=== PATIENT | male | born 1985 | race Caucasian/White ===

== ENCOUNTER → 2020-02-10 11:03 | Outpatient (BNVA) | payer OTHER, SELFPAY | PROVIDERS: Family Provider Family Medicine; PCP Family Medicine; Visit Provider Family Medicine | DX: J30.2 Other seasonal allergic rhinitis (principal); R79.89 Other specified abnormal findings of blood chemistry; Z13.6 Encounter for screening for cardiovascular disorders | CPT/HCPCS: 80053; 80061; 84443 ==

== ENCOUNTER → 2020-02-11 17:07 | Outpatient (BNVA) | payer OTHER, SELFPAY | PROVIDERS: Family Provider Family Medicine; PCP Family Medicine; Visit Provider Family Medicine | DX: R79.89 Other specified abnormal findings of blood chemistry (principal) | CPT/HCPCS: 84436; 84480 ==

== ENCOUNTER → 2021-03-17 13:45 | Outpatient (BNVA) | payer OTHER, SELFPAY | PROVIDERS: Family Provider Family Medicine; PCP Family Medicine; Visit Provider Family Medicine | DX: R79.89 Other specified abnormal findings of blood chemistry (principal); Z13.6 Encounter for screening for cardiovascular disorders | CPT/HCPCS: 80053; 84439; 84443; 85025 ==

== ENCOUNTER → 2021-03-24 12:11 | Outpatient (BNVA) | payer OTHER, SELFPAY | PROVIDERS: Family Provider Family Medicine; PCP Family Medicine; Visit Provider Family Medicine | DX: D64.9 Anemia, unspecified (principal); Z13.6 Encounter for screening for cardiovascular disorders | CPT/HCPCS: 80061; 82607; 82746 ==

== ENCOUNTER 2022-02-18 09:38 | Emergency (ER) | payer OTHER, SELFPAY ==
--- NOTE | 2022-02-18 09:42 | XRR_ITS ---
PROCEDURE INFORMATION: Exam: XR Left Foot Exam date and time: 02/18/2022 9:52 AM Age: 36 years old Clinical indication: Patient HX: Left lateral foot pain, bug bite TECHNIQUE: Imaging protocol: Radiologic exam of the Left foot. Views: 3 or more views. COMPARISON: No relevant prior studies available. FINDINGS: Bones/joints: Normal. Soft tissues: No gas or foreign bodies are seen in the soft tissues. XR/XR foot LT min 3V* [id number] IMPRESSION: No significant abnormality.
[2022-02-18 09:44] VITALS: BP 126/62; PULSE 78; RESP 18; TEMP 36.7; O2SAT 100; BMI 21.8
[2022-02-18 09:52] VITALS: BP 126/62; PULSE 78; RESP 18; TEMP 36.7; O2SAT 100
--- NOTE | 2022-02-18 10:00 | ED_ITS ---
HPI - Extremity Problem General: Chief complaint: Extremity Injury, Lower Stated complaint: left foot abnormality Time Seen by Provider: 02/18/22 09:41 Source: patient Mode of arrival: ambulatory History of Present Illness: 36-year-old male presents emergency room with area of inflammation and pain in the left foot. Localizes the pain to the lateral aspect adjacent to the Achilles tendon insertion. There is a violaceous area with a think he may have been bitten by a bug it is swollen. Started 2 days ago no fever sweats or chills patient did manipulate some purulent material from the area. MD Complaint: extremity pain and extremity swelling Onset (ago): day(s) Pain Consistency: constant Location: left Quality: aching Radiation: none Relieving factors: nothing Exacerbating factors: nothing Associated symptoms: Deny chest pain, fever(s), myalgias, rash or short of breath Review of Systems Const: Denies: fever(s), chills, fatigue or malaise ENMT: Denies: throat pain, ear or mastoid pain, nasal discharge or nasal congestion Card: Denies: chest pain Resp: Denies: dyspnea, productive cough or non-productive cough GI: Denies: abdominal pain, nausea, vomiting, hematemesis, coffee ground emesis, diarrhea, constipation, bloating, hematochezia or melena : Denies: flank pain, difficulty urinating, dysuria, urinary frequency or urinary urgency Skin/Breast: Denies: rash PFSH ED PFSH: Medical History Elevated TSH Seasonal allergies Trisomy 21 Surgical History History of eye surgery Follows with Dr. Aceves Family History Other CAD (coronary artery disease) Cancer Diabetes Lung disease Stroke Social History Smoking and tobacco status: never smoked Alcohol intake: never Physical Exam Const: COMMON NORMALS: no acute distress GENERAL APPEARANCE: cooperative and comfortable ORIENTATION/CONSCIOUSNESS: Yes awake, Yes oriented to person, Yes oriented to place and Yes oriented to time HENMT: COMMON NORMALS: normocephalic and atraumatic HEAD & SCALP: normocephalic and atraumatic Resp: COMMON NORMALS: normal respiratory effort, No retractions, No use of accessory muscles and clear to auscultation bilaterally AUSCULTATION: clear to auscultation bilaterally Cardio: COMMON NORMALS: regular rate, regular rhythm and No murmurs present (Cardio) RATE: regular rate RHYTHM: regular rhythm GI: COMMON NORMALS: Soft to palpation and No hepatosplenomegaly present AUSCULTATION: Yes normoactive bowel sounds PALPATION: Yes Soft to palpation, No Tenderness to palpation present (GI), No Guarding due to palpation present (GI) and Yes No hepatosplenomegaly present Extremity: COMMON NORMALS: capillary refill normal, no clubbing, cyanosis or edema, no calf tenderness and no pedal edema OTHER: The fossa of the lateral malleolus and the Achilles tendon on the left foot laterally. Mild violaceous central area approximately the size of a nickel minimal local erythema. No sign of purulent drainage no sign of abscess Neuro: SENSORIUM/ORIENTATION: Yes oriented to person, Yes oriented to place and Yes oriented to time Skin: COMMON NORMALS: no rashes or lesions noted GENERAL SKIN EXAM: no rashes or lesions noted Course Vital Signs: Vital signs: Vital Signs Temperature 98.1 F 02/18/22 09:52 Pulse Rate 72 02/18/22 10:14 Respiratory Rate 17 02/18/22 10:14 Blood Pressure 126/62 02/18/22 10:14 Pulse Oximetry 100 02/18/22 10:14 Oxygen Delivery Me thod 02/18/22 09:52 MDM - Extremity (Nontraumatic) Medical Decision Making Elevate apply warm moist heat 2-3 times a day start oral antibiotics follow-up with primary care next week recheck if worsens Medical Records I reviewed the patient's medical records. Lab Data Radiology Impressions Foot X-Ray 02/18/22 09:42 IMPRESSION: No significant abnormality. Discharge Plan Discharge Patient Disposition: Home Clinical Impression: Brown recluse spider bite Condition: Stable Prescriptions: New Bactrim 400-80 mg tablet 1 tab PO BID 10 Days Qty: 20 0RF No Action loratadine [Claritin] 10 mg tablet 10 mg PO DAILY vit A-vit C-vit [id number] [id number] [id number] tablet 1 tab PO DAILY montelukast [Singulair] 10 mg tablet 10 mg PO DAILY 30 Days Qty: 30 11RF Discharge Orders: Discharge ED (Routine); Ordered 02/18/22 Ordered By: mUesh Holloway Referrals: Michelle Yeung DO [Primary Care Provider] - Discharge Diet: Usual diet Discharge Activity: Increase activity as tolerated Activity Restrictions/Additional Instructions: Follow-up with your primary care provider within the next 3 to 4 days. It is likely that the area of inflammation will increase before it begins to decrease. Elevate apply moist heat 3-4 times a day start the oral antibiotic. You can use Tylenol ibuprofen for discomfort. Depending on how this develops it may need surgical debridement at a later date. 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
[2022-02-18 10:14] VITALS: BP 126/62; PULSE 72; RESP 17; O2SAT 100
== END 2022-02-18 10:07 | disposition home or self-care (01) ==
PROVIDERS: Emergency Provider Family Medicine; PCP Family Medicine
DX: T63.331A Toxic effect of venom of brown recluse spider, accidental (unintentional), initial encounter (principal); Q90.9 Down syndrome, unspecified
CPT/HCPCS: 73630; 99283

== ENCOUNTER 2023-05-02 14:09 | Outpatient (CLI) | payer OTHER, SELFPAY ==
--- NOTE | 2023-05-02 14:30 | USCV_ITS ---
Saqib Vasquez Age: 37 Gender: M : 1985 Exam Date: 05/02/2023 14:39 Ordering Phys: Michelle Yeung DO Technologist: Exam Location: [facility] [place] Indication: downs BP: 120 / 70 HR: 69 Rhythm: Sinus Technical Quality: Adequate MEASUREMENTS (Male / Female) Normal Values 2D ECHO LV Diastolic Diameter PLAX 3.9 cm 4.2 - 5.9 / 3.9 - 5.3 cm LV Systolic Diameter PLAX 2.3 cm IVS Diastolic Thickness 0.7 cm 0.6 - 1.0 / 0.6 - 0.9 cm IVS Systolic Thickness 1.1 cm LVPW Diastolic Thickness 1.0 cm 0.6 - 1.0 / 0.6 - 0.9 cm LVPW Systolic Thickness 1.0 cm LVOT Diameter 2.0 cm LV Ejection Fraction 2D Teich 71.0 % LV Ejection Fraction MOD 2C 72.3 % LV Ejection Fraction 2C AL 72.5 % LA Diameter 2.8 cm IVC Diameter 1.1 cm M-MODE Aortic Annulus Diameter 3.3 cm LA Ao Ratio MM 0.8 MV E Point Septal Separation 1.0 cm DOPPLER AV Peak Velocity 135.0 cm/s LVOT Peak Velocity 85.0 cm/s AV Area Cont Eq vti 2.7 cm squared AV Area Cont Eq pk 2.0 cm squared MV Area PHT 5.0 cm squared Mitral E to A Ratio 1.5 MV E' Velocity 91.0 cm/s TR Peak Velocity 144.0 cm/s TR Peak Gradient 8.3 mmHg TV Peak E Velocity 92.0 cm/s Right Atrial Pressure 3.0 mmHg Pulmonary Artery Systolic Pressu 11.3 mmHg FINDINGS Left Ventricle Normal left ventricular size and systolic function, EF 73 %. No regional wall motion abnormalities. Right Ventricle Normal right ventricular size and systolic function. Right Atrium The right atrium is normal in size. Left Atrium The left atrium is normal in size. Mitral Valve Thickened anterior mitral leaflet . Aortic Valve Appears to be tricuspid. No gross abnormalities noted Tricuspid Valve No gross abnormalities noted. Trace of tricuspid regurgitation Pulmonic Valve No gross abnormalities noted Pericardium Normal pericardium without effusion. Aorta Normal ascending aorta dimension. IVC The inferior vena cava appears normal. CONCLUSIONS Normal left ventricular size and systolic function, EF 73 %. No regional wall motion abnormalities. Trace of tricuspid regurgitation. Normal cardiac chamber sizes There is no pericardial effusion. There are no intracardiac masses. No similar previous studies are available for comparison Dr Jessie Morocho MD FACC (Electronically Signed) Final Date: 04 May 2023 10:46 S
== END 2023-05-02 14:10 | disposition home or self-care (01) ==
PROVIDERS: PCP Family Medicine; Visit Provider Family Medicine
DX: Q90.9 Down syndrome, unspecified (principal)
CPT/HCPCS: 93306

== ENCOUNTER → 2023-05-15 13:34 | Outpatient (BNVA) | payer OTHER, SELFPAY | PROVIDERS: PCP Family Medicine; Visit Provider Family Medicine | DX: Z13.6 Encounter for screening for cardiovascular disorders (principal); E53.8 Deficiency of other specified B group vitamins | CPT/HCPCS: 80053; 80061; 82607; 83036; 84439; 84443; 84480; 85025 ==